=== PATIENT | female | born 1975 | race Two or more races ===

== ENCOUNTER 2024-04-17 19:55 | Emergency (ER) | payer SELFPAY ==
[~2024-04-17] VITALS: Ht 165.1 cm; Wt 70.4 kg
[2024-04-17 21:39] LABS: Basophils # (auto) 0 10 ^3/uL (0-0.2); Basophils % (auto) 0.2 % (0.0-2.0); Eosinophils # (auto) 0 10 ^3/uL (0-0.8); Eosinophils % (auto) 0.2 % (0.0-7.0); Hematocrit 37.8 % (36.0-46.0); Hemoglobin 12.5 g/dL (12.2-16.2); Lymphocytes # (auto) 0.5 10 ^3/uL (0.4-5.4); Lymphocytes % (auto) 4.7 % (10.0-50.0); Mean Corpuscular Hemoglobin 28.7 pg (28.0-32.0); Monocytes # (auto) 0.6 10 ^3/uL (0-1.3); Monocytes % (auto) 6.4 % (0.0-12.0); Neutrophils % (auto) 88.5 % (37.0-80.0); Nucleated Red Blood Cells % 0.1 %; Red Blood Cells 4.34 10^6/uL (4.0-5.20); Red Cell Distribution Width 14.8 % (11.8-14.3); White Blood Cell 10.1 10^3/uL (4.4-10.8)
[2024-04-17 21:57] LABS: Alanine Aminotransferase 20 U/L (7-40); Albumin 3.9 g/dL (3.2-4.8); Alkaline Phosphatase 71 U/L (46-116); Anion Gap 11 (5-15); Aspartate Aminotransferase 21 U/L (13-40); BUN/Creatinine Ratio 11.1 (10.0-20.0); Blood Urea Nitrogen 17 mg/dL (9-23); Carbon Dioxide 22 mmol/L (20-30); Chloride 107 mmol/L (98-107); Glucose 120 mg/dL (74-106); Lipase 45 U/L (12-53); Potassium 3.3 mmol/L (3.5-5.1); Sodium 140 mmol/L (136-145)
[2024-04-17 21:58] LABS: Bilirubin, Total 0.2 mg/dL (0.2-1.0); Total Protein 6.7 g/dL (5.7-8.2)
[2024-04-18] MEDS ORDERED: FAMO20TA10 PO (00:35)
[2024-04-18] MEDS ORDERED: ZOFR4T PO (00:35)
[2024-04-18] MEDS ORDERED: DICY10CA PO (00:35)
[2024-04-18] MEDS ORDERED: AUG875T PO (00:35)
[2024-04-18 00:51] LABS: Urine Bacteria None Seen /hpf (None Seen)
[2024-04-18 01:10] LABS: Urine Blood 3+ /uL (Negative); Urine Clarity Turbid (Clear); Urine Color Yellow (Yellow); Urine Hyaline Cast MANY /lpf (0 - 2); Urine Mucus FEW (None Seen); Urine Protein, UAD 2+ (Negative); Urine Specific Gravity 1.025 (1.001-1.035); Urine Urobilinogen Normal (Negative); Urine WBC 7 /hpf (0 - 5); Urine pH 5.5 (5.0-9.0)
[2024-04-18] MEDS: SODIUM CHLORIDE 0.9% 1,000 ML IV ONE (04:55)
[2024-04-18] MEDS: ONDANSETRON HCL 4 MG/2 ML VIAL IV ONE (04:55)
[2024-04-18] MEDS: POTASSIUM CHL 20 Meq TABLET PO ONE (05:01)
[2024-04-18] MEDS: MORPHINE SULFATE INJ 2 MG/ml SYRG IV ONE (05:20)
[2024-04-18] MEDS: cefTRIAXone 1GM/50ML D5W 50 ML IV ONE (05:20)
[2024-04-18] MEDS: PANTOPRAZOLE 40 MG/10 ML VIAL INJ IV ONE (05:20)
[2024-04-18 06:55] VITALS: BP 120/49; PULSE 82; RESP 16; TEMP 98.2; O2SAT 99
[2024-04-18] MEDS ORDERED: ALBU108A5 IN (09:17)
[2024-04-18] MEDS ORDERED: HYDR25CA PO (09:17)
[2024-04-18] MEDS ORDERED: SUMA25TA2 PO (09:17)
== END 2024-04-18 06:54 | disposition home or self-care (01) ==
LOC: ER 19:55
DX: K52.9 Noninfective gastroenteritis and colitis, unspecified (principal); R07.89 Other chest pain; K29.70 Gastritis, unspecified, without bleeding; R18.8 Other ascites; K57.30 Diverticulosis of large intestine without perforation or abscess without bleeding; N83.201 Unspecified ovarian cyst, right side; R91.1 Solitary pulmonary nodule
CPT/HCPCS: 36415; 74176; 80053; 81001; 81025; 83690; 84484; 85025; 93005; 96365; 96375; 99285; C9113; J0696; J2270; J7030

== ENCOUNTER 2024-04-18 07:07 | Emergency (ER) | payer MEDICAID, OTHER ==
[~2024-04-18] VITALS: Ht 165.1 cm; Wt 82.2 kg
[~2024-04-18 07:07] MED LIST: AUG875T PO; DICY10CA PO; FAMO20TA10 PO; ZOFR4T PO
[2024-04-18 08:29] VITALS: BP 127/70; PULSE 82; RESP 18; TEMP 98.3; O2SAT 96
[2024-04-18] MEDS ORDERED: HYDR25CA PO (09:17)
[2024-04-18] MEDS ORDERED: ALBU108A5 IN (09:17)
[2024-04-18] MEDS ORDERED: SUMA25TA2 PO (09:17)
== END 2024-04-18 09:32 | disposition home or self-care (01) ==
LOC: ER 07:07
DX: J45.909 Unspecified asthma, uncomplicated (principal); G43.909 Migraine, unspecified, not intractable, without status migrainosus; Z76.0 Encounter for issue of repeat prescription; F41.9 Anxiety disorder, unspecified

== ENCOUNTER 2024-04-28 18:51 | Emergency (ER) | payer MEDICAID ==
[~2024-04-28] VITALS: Ht 165.1 cm; Wt 83.7 kg
[~2024-04-28 18:51] MED LIST changes: +ALBU108A5 IN; +HYDR25CA PO; +SUMA25TA2 PO
[2024-04-28 21:30] VITALS: BP 142/70; PULSE 67; RESP 19; TEMP 98.8; O2SAT 96
[2024-04-28] MEDS ORDERED: LEVE500T40 PO (22:01)
== END 2024-04-28 22:07 | disposition home or self-care (01) ==
LOC: ER 18:51
DX: S40.022A Contusion of left upper arm, initial encounter (principal); S00.83XA Contusion of other part of head, initial encounter; Y04.2XXA Assault by strike against or bumped into by another person, initial encounter; Y93.89 Activity, other specified; Y92.524 Gas station as the place of occurrence of the external cause; Y99.8 Other external cause status
CPT/HCPCS: 70486

== ENCOUNTER 2024-05-10 13:28 | Emergency (ER) | payer MEDICAID ==
[~2024-05-10] VITALS: Ht 165.1 cm; Wt 101.2 kg
[~2024-05-10 13:28] MED LIST changes: +LEVE500T40 PO
[2024-05-10] MEDS ORDERED: ACET500T58 PO (18:09)
[2024-05-10] MEDS ORDERED: IBUP-1455 PO (18:09)
[2024-05-10 18:33] VITALS: BP 165/109; PULSE 100; RESP 16; TEMP 97.9; O2SAT 98
[2024-05-10] MEDS ORDERED: DEXT60TA4 PO (18:35)
[2024-05-10] MEDS ORDERED: AMOX500C2 PO (18:35)
[2024-05-10] MEDS: KETOROLAC TROMETH 60MG/2ML VIAL IM ONE (18:42)
== END 2024-05-10 18:45 | disposition home or self-care (01) ==
LOC: ER 13:28
DX: S09.8XXA Other specified injuries of head, initial encounter (principal); Y08.89XA Assault by other specified means, initial encounter; Y93.89 Activity, other specified; Y92.89 Other specified places as the place of occurrence of the external cause; Y99.8 Other external cause status
CPT/HCPCS: 70450; 96372; 99285; J1885

== ENCOUNTER 2024-07-05 17:16 | Emergency (ER) | payer MEDICAID ==
[~2024-07-05] VITALS: Ht 165.1 cm; Wt 84.4 kg
[~2024-07-05 17:16] MED LIST changes: +ACET500T58 PO; +AMOX500C2 PO; +DEXT60TA4 PO; +IBUP-1455 PO
[2024-07-05] MEDS ORDERED: LEVE500T40 PO (20:02)
[2024-07-05] MEDS ORDERED: RIZA10TA12 PO (20:02)
[2024-07-05 20:25] LABS: Urine Bacteria None Seen /hpf (None Seen)
[2024-07-05 20:39] LABS: Urine Blood TRACE /uL (Negative); Urine Clarity Clear (Clear); Urine Color Light-Yellow (Yellow); Urine Protein, UAD Negative (Negative); Urine Specific Gravity 1.029 (1.001-1.035); Urine Urobilinogen Normal (Negative); Urine WBC <1 /hpf (0 - 5); Urine pH 5.5 (5.0-9.0)
[2024-07-05 22:26] VITALS: BP 138/62; PULSE 65; RESP 16; TEMP 98.1; O2SAT 97
== END 2024-07-05 23:05 | disposition home or self-care (01) ==
LOC: ER 17:16
DX: R51.9 Headache, unspecified (principal); R56.9 Unspecified convulsions; Z76.0 Encounter for issue of repeat prescription; Z79.899 Other long term (current) drug therapy
CPT/HCPCS: 70450; 81001